=== PATIENT | female | born 1955 | race Caucasian/White ===

== ENCOUNTER 2018-08-09 06:34 | Day surgery (SDC) | payer OTHER ==
[2018-08-09 07:31] VITALS: BMI 35.9
[2018-08-09 07:37] VITALS: TEMP 98
[2018-08-09 09:46] VITALS: BP 111/52; PULSE 85
--- NOTE | 2018-08-10 12:42 | PATH ---
Surgical Pathology Report Patient Name: BAILEE JOYNER [facility] Rec. #: [id number] /Age/Gender: 1955 (Age: 63) / F Account: [id number] Location: [facility]-ENDOSCOPY Taken: 08/09/2018 Received: 08/09/2018 Reported: 08/10/2018 Physicians: Zoran Jurado M.D. Specimen(s) Received A: BX RECTUM POLYP B: TRANSVERSE COLON POLYP C: BX RIGHT COLON POLYPS D: BX CECAL POLYP E: BX DESCENDING COLON POLYP F: SIGMOID POLYP Clinical History Colon cancer screening, family history of colon polyp Postoperative diagnosis: Diverticulosis, colon polyps Final Diagnosis A. RECTUM, POLYP, BIOPSY: COLONIC MUCOSA WITH SUPERFICIAL HYPERPLASTIC FEATURES.. B. TRANSVERSE COLON, POLYP, POLYPECTOMY: HYPERPLASTIC POLYP. C. COLON, RIGHT, POLYPS, BIOPSY: HYPERPLASTIC POLYP(S). D. CECUM, POLYP, BIOPSY: TUBULAR ADENOMA. E. DESCENDING COLON, POLYP, BIOPSY: HYPERPLASTIC POLYP. F. SIGMOID COLON, POLYP, POLYPECTOMY: HYPERPLASTIC POLYP. Electronically Signed Melonie Cohen M.D. Gross Description A. Received in formalin, labeled "biopsy polyp rectum" are 2 waite, irregular portions of soft tissue averaging 0.4 cm. in greatest dimension. The specimens are submitted in toto in one cassette. B. Received in formalin, labeled "transverse colon polyp" are 2 waite, irregular portions of soft tissue measuring 0.3 and 0.4 cm. in greatest dimension. The specimens are submitted in toto in one cassette. C. Received in formalin, labeled "biopsy polyps right colon" is a waite, irregular portion of soft tissue measuring 0.4 cm. in greatest dimension. The specimen is submitted in toto in one cassette. D. Received in formalin, labeled "biopsy polyp cecum" are 3 waite, irregular portions of soft tissue ranging from 0.2-0.3 cm. in greatest dimension. The specimens are submitted in toto in one cassette. E. Received in formalin, labeled "biopsy polyp descending colon" are 5 waite, irregular portions of soft tissue ranging from 0.1-0.4 cm. in greatest dimension. The specimens are submitted in toto in one cassette. F. Received in formalin, labeled "polyp sigmoid" are 2 waite, irregular portions of soft tissue averaging 0.3 cm. in greatest dimension. The specimens are submitted in toto in one cassette. 08/09/2018 [facility]08/09/2018
== END 2018-08-09 09:46 | disposition home or self-care (01) ==
LOC: JASU-ENDO 06:34
PROVIDERS: ATTEND Internal Medicine Gastroenterology
PROC: 0DBL8ZX Excision of Transverse Colon, Via Natural or Artificial Opening Endoscopic, Diagnostic (ICD-10-PCS; 2018-08-09)
PROC: 0DBK8ZX Excision of Ascending Colon, Via Natural or Artificial Opening Endoscopic, Diagnostic (ICD-10-PCS; 2018-08-09)
PROC: 0DBP8ZX Excision of Rectum, Via Natural or Artificial Opening Endoscopic, Diagnostic (ICD-10-PCS; 2018-08-09)
PROC: 0DBM8ZX Excision of Descending Colon, Via Natural or Artificial Opening Endoscopic, Diagnostic (ICD-10-PCS; 2018-08-09)
PROC: 0DBH8ZX Excision of Cecum, Via Natural or Artificial Opening Endoscopic, Diagnostic (ICD-10-PCS; 2018-08-09)
PROC: 0DBN8ZX Excision of Sigmoid Colon, Via Natural or Artificial Opening Endoscopic, Diagnostic (ICD-10-PCS; principal; 2018-08-09 08:00)
DX: Z12.11 Encounter for screening for malignant neoplasm of colon (principal); K62.1 Rectal polyp; K63.5 Polyp of colon; D12.2 Benign neoplasm of ascending colon; D12.0 Benign neoplasm of cecum; D12.4 Benign neoplasm of descending colon; D12.5 Benign neoplasm of sigmoid colon; D12.3 Benign neoplasm of transverse colon; K64.8 Other hemorrhoids; K57.30 Diverticulosis of large intestine without perforation or abscess without bleeding; Z83.71 Family history of colonic polyps
CPT/HCPCS: 88305-TC

== ENCOUNTER 2023-05-27 04:31 | Day surgery (SDC) | payer OTHER ==
[2023-05-25 09:38] VITALS: BMI 31.5
[2023-05-27 12:06] VITALS: BP 108/50; PULSE 80; RESP 16; TEMP 98
== END 2023-05-27 12:20 | disposition home or self-care (01) ==
LOC: JASU-ENDO 04:31
PROVIDERS: ATTEND Internal Medicine Gastroenterology
PROC: 0DBL8ZX Excision of Transverse Colon, Via Natural or Artificial Opening Endoscopic, Diagnostic (ICD-10-PCS; 2023-05-27)
PROC: 0DBM8ZX Excision of Descending Colon, Via Natural or Artificial Opening Endoscopic, Diagnostic (ICD-10-PCS; 2023-05-27)
PROC: 0DBH8ZX Excision of Cecum, Via Natural or Artificial Opening Endoscopic, Diagnostic (ICD-10-PCS; principal; 2023-05-27 12:00)
DX: Z12.11 Encounter for screening for malignant neoplasm of colon (principal); K63.5 Polyp of colon; K57.30 Diverticulosis of large intestine without perforation or abscess without bleeding; Z86.010 Personal history of colon polyps
CPT/HCPCS: 88305-TC